=== PATIENT | male | born 1960 | race African-American/Black ===

== ENCOUNTER 2016-09-22 12:39 | Emergency (ER) | payer OTHER ==
[~2016-09-22] VITALS: Ht 177.8 cm; Wt 79.5 kg
[2016-09-22 12:47] VITALS: Ht 177.8 cm; Wt 79.5 kg
--- NOTE | 2016-09-22 13:20 | ERA ---
ER Documentation Chief Complaint Date/Time DATE: 09/22/16 TIME: 13:19 Chief Complaint Diarrhea HPI The patient is a 56-year-old male, presenting to the ER because of epigastric abdominal pain, intermittent diarrhea for the last 2 weeks, 08/18.. He took Cipro for 1 week and did not get better. He was seen by his physician today who sent him to the ER for further evaluation. He had a stool study that was negative for Salmonella or Shigella E. coli. He denies fever, chills, neck pain , chest pain, nausea, vomiting, dysuria. He denies any recent traveling. He does not smoke, drinks socially, smokes marijuana Past medical history: None Past surgical history: Right knee arthroscopy, right eye cataract ROS All systems reviewed and are negative except as per history of present illness. Medications Home Meds Active Scripts Loperamide Hcl* (Imodium*) 2 Mg Capsule, 2 MG PO .AFTER EA LOOSE BM Y for DIARRHEA, #10 TAB Prov:SARA WILLIAM MD 09/22/16 Loperamide Hcl* (Imodium*) 2 Mg Capsule, 2 MG PO .AFTER EA LOOSE BM Y for DIARRHEA, #20 TAB Prov:SARA WILLIAM MD 09/22/16 Pantoprazole* (Protonix*) 40 Mg Tablet.dr, 40 MG PO DAILY, #20 TAB Prov:SARA WILLIAM MD 09/22/16 Allergies Allergies: Coded Allergies: No Known Allergy (Unverified , 09/22/16) Physical Exam Vitals Vital Signs Date Time Temp Pulse Resp B/P Pulse Ox O2 Delivery O2 Flow Rate FiO2 09/22/16 16:05 71 18 122/71 99 09/22/16 12:47 98.4 53 18 128/73 99 Physical Exam Const: No acute distress. Head: Atraumatic. Eyes: Normal Conjunctiva. ENT: Normal External Ears, Nose and Mouth. Neck: Full range of motion. No meningismus. Resp: Clear to auscultation bilaterally. Cardio: Regular rate and rhythm, no murmurs. Abd: Soft, non distended, normal bowel sounds, mild epigastric tenderness, no right lower quadrant, right upper quadrant, rigidity, rebound or CVA tenderness Skin: No petechiae or rashes. Back: No midline or flank tenderness. Ext: No cyanosis, or edema. Neur: Awake and alert. No focal deficit Psych: Normal Mood and Affect. Result Diagram: 09/22/16 1335 09/22/16 1335 Results 24 hrs Laboratory Tests Test 09/22/16 13:35 09/22/16 14:30 09/22/16 14:44 White Blood Count 7.710^3/ul Red Blood Count 4.4210^6/ul Hemoglobin 12.9g/dl Hematocrit 39.9% Mean Corpuscular Volume 90.3fl Mean Corpuscular Hemoglobin 29.2pg Mean Corpuscular Hemoglobin Concent 32.3g/dl Red Cell Distribution Width 14.4% Platelet Count 59589^3/UL Mean Platelet Volume 9.4fl Neutrophils % 53.2% Lymphocytes % 22.2% Monocytes % 16.6% Eosinophils % 7.6% Basophils % 0.4% Nucleated Red Blood Cells % 0.0/100WBC Neutrophils # 4.110^3/ul Lymphocytes # 1.710^3/ul Monocytes # 1.310^3/ul Eosinophils # 0.610^3/ul Basophils # 0.010^3/ul Nucleated Red Blood Cells # 0.010^3/ul Sodium Level 142mmol/L Potassium Level 4.0mmol/L Chloride Level 103mmol/L Carbon Dioxide Level 27mmol/L Anion Gap 16 Blood Urea Nitrogen 11mg/dl Creatinine 1.16mg/dl Glucose Level 81mg/dl Calcium Level 9.2mg/dl Total Bilirubin 0.1mg/dl Direct Bilirubin 0.00mg/dl Indirect Bilirubin 0.1mg/dl Aspartate Amino Transf (AST/SGOT) 24IU/L Alanine Aminotransferase (ALT/SGPT) 34IU/L Alkaline Phosphatase 61IU/L Total Protein 8.1g/dl Albumin 3.8g/dl Globulin 4.30g/dl Albumin/Globulin Ratio 0.88 Lipase 331U/L Stool Occult Blood POSITIVE Bedside Urine pH (LAB) 6.0 Bedside Urine Protein (LAB) Negative Bedside Urine Glucose (UA) Negative Bedside Urine Ketones (LAB) Negative Bedside Urine Blood Negative Bedside Urine Nitrite (LAB) Negative Bedside Urine Leukocyte Esterase (L Negative Procedures/[place] [id number] Radiology Main Line: [phone] DIAGNOSTIC IMAGING REPORT Patient: LANNY WINSTON : 1960 Age: 56 Sex: M MR #: [id number] DOS: 09/22/16 1329 Ordering MD: SARA WILLIAM MD Location: E/R Room/Bed: PROCEDURE: US Abdomen. CLINICAL INDICATION: abdominal pain TECHNIQUE: Multiple real-time images were acquired of the patient's right upper quadrant abdomen and retroperitoneum utilizing a high resolution transducer. COMPARISON: None FINDINGS: The liver demonstrates normal echogenicity. The liver is normal in size and no focal solid lesions are seen. The liver measures 20.9 cm in length. The portal vein is patent with normal direction of flow. No intrahepatic biliary dilatation is seen. The gallbladder is markedly contracted and not well seen. No gallstones are identified within the gallbladder. There is no pericholecystic fluid or gallbladder wall thickening. The common bile duct measures 3.6 mm in maximal dimension. The visualized portions of the pancreas are unremarkable. The tail of the pancreas is not seen. No free fluid is identified. The right kidney is normal in size, and demonstrate normal echogenicity and cortical thickness. The right kidney measures 9.9 cm in long dimension. There is no evidence of hydronephrosis. There are no kidney stones. RPTAT: AA IMPRESSION: Markedly contracted gallbladder is not well seen. No gross evidence of gallstones. .Jose Ness MD, MD Date Time Electronically viewed and signed by .Jose Ness MD, on 09/22/2016 14: 27 .S/ CC: SARA WILLIAM MD MEDICAL MAKING DECISION: The patient is a 56-year-old male, presenting to the ER because of epigastric abdominal pain, also said that with diarrhea of unclear etiology. He remains well in the emergency department. The differential diagnoses considered include but are not limited to cholelithiasis, cholecystitis, cystitis, pancreatitis, hepatitis, gastritis, peptic ulcer disease, gastric ulcer, appendicitis, diverticulitis, cholangitis, choledocholithiasis, partial small bowel obstruction, colitis. Departure Diagnosis: Primary Impression: Abdominal pain Additional Impression: Diarrhea Condition: Good Comments He was discharged with Protonix, Imodium I discussed the findings with the patient. I advised the patient to follow-up with the primary physician in about 1-2 days for referral to topology professor for endoscopy, sooner if needed and return if any concern. The patient's blood pressure was elevated (>120/80) but appears stable without evidence of hypertension emergency or urgency. The patient was counseled about the risks of hypertension and urged to pursue outpatient monitoring and therapy within a week with their primary care physician. SARA WILLIAM MD September 22, 2016 13:20
[2016-09-22 13:42] LABS: ADD SCAN DIFF NO
[2016-09-22 13:45] LABS: BASOPHILS % 0.4 % (0.0-2.0); EOSINOPHILS # 0.6 10^3/ul (0.0-0.5); EOSINOPHILS % 7.6 % (0.0-7.0); HEMATOCRIT 39.9 % (42.0-52.0); HEMOGLOBIN 12.9 g/dl (14.0-18.0); LYMPHOCYTES # 1.7 10^3/ul (0.8-2.9); LYMPHOCYTES % 22.2 % (15.0-51.0); MEAN CORPUSCULAR HEMOGLOBIN 29.2 pg (29.0-33.0); MEAN CORPUSCULAR HGB CONC 32.3 g/dl (32.0-37.0); MEAN CORPUSCULAR VOLUME 90.3 fl (82.0-101.0); MEAN PLATELET VOLUME 9.4 fl (7.4-10.4); MONOCYTE # 1.3 10^3/ul (0.3-0.9); MONOCYTES % 16.6 % (0.0-11.0); NEUTROPHIL # 4.1 10^3/ul (1.6-7.5); NEUTROPHILS % 53.2 % (39.0-77.0); PLATELET COUNT 303 10^3/UL (140-415); RED BLOOD COUNT 4.42 10^6/ul (4.70-6.10); RED CELL DISTRIBUTION WIDTH 14.4 % (11.5-14.5); WHITE BLOOD COUNT 7.7 10^3/ul (4.8-10.8)
[2016-09-22 14:12] LABS: ALBUMIN 3.8 g/dl (3.3-4.9)
[2016-09-22 14:14] LABS: CREATININE 1.16 mg/dl (0.61-1.24)
[2016-09-22 14:15] LABS: ALBUMIN/GLOBULIN RATIO 0.88; BILIRUBIN,INDIRECT 0.1 mg/dl (0-1.1); BILIRUBIN,TOTAL 0.1 mg/dl (0.2-1.3); CALCIUM 9.2 mg/dl (8.4-10.2); TOTAL PROTEIN 8.1 g/dl (6.1-8.1)
--- NOTE | 2016-09-22 14:27 | RADRPT ---
PROCEDURE: US Abdomen. CLINICAL INDICATION: abdominal pain TECHNIQUE: Multiple real-time images were acquired of the patient's right upper quadrant abdomen a nd retroperitoneum utilizing a high resolution transducer. COMPARISON: None FINDINGS: The liver demonstrates normal echogenicity. The liver is normal in size and no focal solid lesions are seen. The liver measures 20.9 cm in length. The portal vein is patent with normal direction of f low. No intrahepatic biliary dilatation is seen. The gallbladder is markedly contracted and not well seen. No gallstones are identified within the g allbladder. There is no pericholecystic fluid or gallbladder wall thickening. The common bile duct measures 3.6 mm in maximal dimension. The visualized portions of the pancreas are unremarkable. The tail of the pancreas is not seen. No free fluid is identified. The right kidney is normal in size, and demonstrate normal echogenicity and cortical thickness. The right kidney measures 9.9 cm in long dimension. There is no evidence of hydronephrosis. There are no kidney stones. RPTAT: AA IMPRESSION: Markedly contracted gallbladder is not well seen. No gross evidence of gallstones. .Jose Ness MD, MD Date Time Electronically viewed and signed by .Jose Ness MD, MD on 09/22/2016 14:27 .S/
[2016-09-22 14:42] LABS: URINE BLOOD (Dip) POC Negative (NEGATIVE)
[2016-09-22] MEDS ORDERED: PANT40TA3 PO (15:57)
[2016-09-22] MEDS ORDERED: LOPE2CAP PO ×2 (15:58→16:01)
[2016-09-22 16:05] VITALS: BP 122/71; PULSE 71; RESP 18
== END 2016-09-22 16:08 | disposition home or self-care (01) ==
LOC: E/R 12:39
DX: R10.13 Epigastric pain (principal)
CPT/HCPCS: 76705; 80053; 81003; 82270; 83690; 85025; 87045; 87075; 87205; Z7502